=== PATIENT | female | born 1990 | race Caucasian/White ===

== ENCOUNTER → 2017-09-12 | Outpatient (REF) | payer MEDICAID ==
[~2017-09-12] MED LIST: DOXY150T6 PO; METH0.2T PO; NAP550 PO
== END ==
LOC: ZZSENDIN 17:22
PROVIDERS: ATTEND Obstetrics & Gynecology
DX: E03.9 Hypothyroidism, unspecified (principal)
CPT/HCPCS: 84443

== ENCOUNTER → 2017-11-04 | Outpatient (CLI) | payer MEDICAID | LOC: LAB 15:13 | PROVIDERS: ATTEND Student in an Organized Health Care Education/Training Program | DX: Z36.85 Encounter for antenatal screening for Streptococcus B (principal) | CPT/HCPCS: 87081 ==

== ENCOUNTER 2017-11-10 19:27 | Emergency (ER) | payer MEDICAID ==
[~2017-11-10 19:27] MED LIST changes: +GUAI100G4 PO; +LEVO50TA86 PO; +PREN-127 PO
[2017-11-10 19:30] VITALS: BP 120/97
[2017-11-10] MEDS ORDERED: AMOX-362 PO (19:49)
[2017-11-10] MEDS ORDERED: AMOXICILLIN 500 MG CAP PO ONE (19:50)
[2017-11-10] MEDS ORDERED: APAP/HYDROCODONE 325/5 TAB PO ONE (19:50)
[2017-11-10] MEDS ORDERED: ACET/HYDROC 5/325MG TH ER ONLY 2 TAB/BOTTLE PO ONE (19:50)
--- NOTE | 2017-11-10 19:50 | ER Report ---
History and Physical Time Seen By MD: 19:37 Hx. of Stated Complaint: PATIENT STARTED HAVING PAIN IN RIGHT EAR ABOUT 2HOURS AGO. PATIENT STATES SHE HAS BEEN SICK SINCE FRIDAY, WITH COUGH AND SORE THROAT. PATIENT ALSO 37WEEKS . HPI/ROS CHIEF COMPLAINT: ear pain HISTORY OF PRESENT ILLNESS: This is a 27 year old female. She is 37 weeks . Has severe right ear pain. Started 2 hours ago. Has been sick with cough and sore throat for 5 days now. No shortness of breath. No nausea or vomiting. No problems with other than decreased movement today. No leakage of fluid, bleeding, or contractions/pain. No fever or chills. Allergies: Coded Allergies: No Known Drug Allergies (Unverified , 11/10/17) Home Meds Active Scripts Amoxicillin (AMOXICILLIN) 500 Mg Capsule, 1 CAP PO Q8H, #21 CAPSULE 0 Refills Prov:CLARENCE FRAUSTO MD 11/10/17 Reported Medications Vits W-Ca,Fe,Fa(<1MG) ( VITAMINS) 1 Each Tablet, 1 EACH PO DAILY, TAB 11/08/17 Levothyroxine Sodium (LEVOTHYROXINE SODIUM) 50 Mcg Tablet, 25 MCG PO QDAY, TAB 11/08/17 Discontinued Reported Medications Guaifenesin (MUCINEX) 100 Mg Gran.pack, 100 MG PO 11/08/17 Doxycycline Monohydrate (Doxycycline) 150 Mg Tablet, 100 MG PO BID, #14 0 Refills 05/03/11 Methylergonovine Maleate (Methergine) 0.2 Mg Tablet, 0.2 MG PO EVERY 4 HOURS, # 6 0 Refills 05/03/11 Naproxen Sodium (Anaprox Ds) 550 Mg Tab, 550 MG PO BIDBS, #30 0 Refills 05/03/11 Reviewed Nurses Notes: Yes Smoking Status: Never Smoker Constitutional Vital Sign - Last 24 Hours 11/10/17 19:30 Temp 98.0 Pulse 90 Resp 16 B/P (MAP) 120/97 Pulse Ox 93 O2 Delivery Room Air Physical Exam General: Alert, no acute distress. ENT: Right ear with diffuse erythema of the TM and canal, bulging and purulent fluid behind eardrum. Normal oral mucosa and posterior oropharynx with some erythema which is mild and mild post-nasal drainage. Normal nasal mucosa. Neck: Supple, has some right anterior cervical lymphadenopathy, non-tender. Lungs: Clear to auscultation. Cardiovascular: Regular rate and rhythm. Medical Decision Making ED Course/Re-evaluation ED Course The patient will rest and increase fluid intake. Will start her on Amoxicillin 500mg three times a day for 7 days. She will use Lortab, one now and a take home pack of the 5/325 tablets. She has a follow-up appointment with Dr. Moreno tomorrow. Offered to do some monitoring, but the patient will return home and see how things are going. She knows she can return for further evaluation as needed. Decision to Disposition Date: Nov 10, 2017 Decision to Disposition Time: 19:48 Depart Departure Latest Vital Signs Vital Signs Date Time Temp Pulse Resp B/P (MAP) Pulse Ox O2 Delivery O2 Flow Rate FiO2 11/10/17 19:30 98.0 90 16 120/97 93 Room Air Impression: Primary Impression: Acute otitis media Condition: Condition Unchanged Disposition: HOME OR SELF-CARE Referrals: LIZA MORENO DO (PCP) New Scripts Amoxicillin (AMOXICILLIN) 500 Mg Capsule 1 CAP PO Q8H, #21 CAPSULE 0 Refills Prov: CLARENCE FRAUSTO MD 11/10/17 Patient Instructions: Otitis Media (ED) Additional Instructions: You have an ear infection causing the pain in your ear and likely the cause of your cough as well. We are going to start you Amoxicillin 500mg three times a day for 7 days. For ear pain, take Lortab 5/325, one every 4 hours as needed tonight to help with pain. The pain medicine Lortab does contain Tylenol, so do not take Both medicines at the same time. Based on your Tylenol use recently, it will be safe to take a dose of Lortab now. Rest and increase fluid intake. Follow-up with Dr. Moreno as planned tomorrow. If you have any bleeding, leakage of fluid or contractions, please call Dr. Moreno sooner. You can always return for further evaluation of your if you are concerned or having problems. Problem Qualifiers Primary Impression: Acute otitis media Otitis media type: suppurative Laterality: right Recurrence: not specified as recurrent Spontaneous tympanic membrane rupture: without spontaneous rupture Qualified Codes: H66.001 - Acute suppurative otitis media without spontaneous rupture of ear drum, right ear CLARENCE FRAUSTO MD Nov 10, 2017 19:50
== END 2017-11-10 20:06 | disposition home or self-care (01) ==
LOC: ER 19:57
DX: O26.893 Other specified pregnancy related conditions, third trimester (principal); H66.001 Acute suppurative otitis media without spontaneous rupture of ear drum, right ear; Z3A.37 37 weeks gestation of pregnancy
CPT/HCPCS: 99283

== ENCOUNTER 2017-12-01 07:44 | Inpatient (IN) | payer MEDICAID ==
[~2017-12-01] VITALS: Ht 170.2 cm; Wt 93.0 kg
[~2017-12-01 07:44] MED LIST changes: +AMOX-362 PO
[2017-12-01] MEDS ORDERED: OXYTOCIN 30 UNIT/D5LR 500 ML 500 ML IV PRN (08:13)
[2017-12-01] MEDS ORDERED: FAMOTIDINE(*) 20MG/50ML PREMIX 50 ML IVPB PRN (08:13)
[2017-12-01] MEDS ORDERED: BUPIVACAINE 0.25% MPF INJ EPI PRN (08:15)
[2017-12-01] MEDS ORDERED: FLUSH 10 ML SYR IVP PRN (08:15)
[2017-12-01] MEDS ORDERED: ePHEDrine 25 MG/5 ML DISP.SYR IVP PRN (08:15)
[2017-12-01] MEDS ORDERED: EPIDURAL KEYS XX PRN (08:15)
[2017-12-01] MEDS ORDERED: LIDOCAINE/PF 2% 200MG/10ML AMP 200 MG/10 ML AMPUL EPI PRN (08:15)
[2017-12-01] MEDS ORDERED: LIDOCAINE 1% LOCAL 300 MG/30ML INJ PRN (08:15)
[2017-12-01] MEDS ORDERED: fentaNYL CITR 100 MCG/2 ML AMP IVP PRN (08:15)
[2017-12-01] MEDS ORDERED: ONDANSETRON 4 MG/2 ML VIAL IVP PRN (08:15)
[2017-12-01] MEDS ORDERED: FENTANYL/ROPIVACAINE 100 ML BAG EPI PRN (08:15)
[2017-12-01] MEDS ORDERED: LIDOCAINE/SOD BICARB 8.4% SYR SC PRN (08:15)
[2017-12-01] MEDS ORDERED: METOCLOPRAMIDE 10 MG/2 ML SDV IVP PRN (08:15)
[2017-12-01] MEDS ORDERED: fentaNYL CITR 100 MCG/2 ML AMP IT PRN (08:15)
[2017-12-01] MEDS ORDERED: BUPIVACAINE 0.5% INJ 30ML VIAL EPI PRN (08:15)
[2017-12-01] MEDS ORDERED: LIDO/EPI 2% MPF 1:200,000 20ML EPI PRN (08:15)
[2017-12-01] MEDS: LR(*) 1000 ML BAG 1,000 ML IV PRN ×3 (08:43→16:21)
--- NOTE | 2017-12-01 08:44 | History & Physical ---
History of Present Illness Age of Patient: 27 : 2 Para or TPAL: 0010 EDC per LMP: Dec 02, 2017 Estimated Gestational Age: 39.6 Chief Complaint Painful contractions. History of Present Illness Pt is a 27 y/o @ 39-6/7 weeks gestation who presents to clinic with a chief complaint of painful contractions since late last night. Reports contractions every few minutes that have progressively gotten closer. Pt denies any loss of amniotic fluid. Good movement. No vaginal bleeding. History Patient's Blood Type: O Positive Rubella Status: Immune Group B Strep Screen: Negative Obstetrical History: sAB Past Medical History: Hypothyroid Allergies: Coded Allergies: No Known Drug Allergies (Unverified , 11/10/17) Social History: Denies X 3 Family History: FH: diabetes mellitus BROTHER OR SISTER Idiopathic thrombocytopenic purpura MOTHER Med Rec Home Meds Active Scripts Amoxicillin (AMOXICILLIN) 500 Mg Capsule, 1 CAP PO Q8H, #21 CAPSULE 0 Refills Prov:CLARENCE FRAUSTO MD 11/10/17 Reported Medications Vits W-Ca,Fe,Fa(<1MG) ( VITAMINS) 1 Each Tablet, 1 EACH PO DAILY, TAB 11/08/17 Levothyroxine Sodium (LEVOTHYROXINE SODIUM) 50 Mcg Tablet, 25 MCG PO QDAY, TAB 11/08/17 Review of Systems All Systems Reviewed/Normal: Yes, Except as Noted Constitutional: No Fever, No Weight Loss, No Weight Gain, No Chills, No Night Sweats, No Other Neurological: No Syncope, No Confusion, No Weakness, No Dizziness, No Slurred Speech, No Other Eyes: No Vision Change, No Loss of Vision, No Photophobia, No Other ENT: No Hearing Loss, No Sinus Congestion, No Sore Throat, No Ear Ache, No Tinnitus, No Other Cardiovascular: No Chest Pain, No Palpitations, No Orthostatic Hypotension, No Other Respiratory: No Shortness of Breath, No Cough, No Wheezing, No Other Gastrointestinal: No Nausea, No Vomiting, No Diarrhea, No Dysphagia, No Constipation, No Early Satiety, No Hematemesis, No Hematochezia, No Melena, No Abdominal Pain, No Other Genitourinary: No Dysuria, No Hematuria, No Urinary Incontinence, No Other Musculoskeletal: No Pain, No Sprain, No Strain, No Impaired Mobility, No Other Psychiatric: No Depression, No Anxiety, No Other Exam General Exam General Apperance: Alert/Awake/No Acute Distress Neuro: No Gross deficits Eyes: Normal Extraocular Movement & Vison ENT: Normal Cardiovascular: Regular Rate and Rhythm Respiratory: No Respiratory Distress, Clear to Auscultation Abdomen: Soft, Non-Tender, Non-Distended, Gravid - Non-Tender : Normal Musculoskeletal: No Weakness/Pain Extremities: No Cyanosis,Clubbing or Edema Integumentary: Skin Intact without Lesions or Rash Psychological: Alert & Oriented X3, Appropriate Mood & Affect Cervical Dialation: 4 Cervical Effacement (%): 100 Cervical Consistency: Soft Cervical Position: Anterior Station: -2 Presentation: Vertex Uterine Contractions(Q min): 2 Uterine Contraction Strength: Moderate UC Resting Tone: Soft Fetus Feeling Movement?: Yes Estimated Weight(grams): 3600 Heart Tones: 135 Heart Tone Variabilty: Moderate FHT Accelerations: 15X15 FHT Decelerations: None Medical Decision Making Pre-Admit Course Medical Record Review: Yes VTE Prophylasis: Adult Deep Vein Thrombosis/Pulmonary: No Assessment and Plan 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 Once comfortable will get catheter and undergo amniotomy. Expect . (2) 39 weeks gestation of HERACLIOEDDIEKevin WATTS Dec 01, 2017 08:44
[2017-12-01 08:51] LABS: PLATELET COUNT, AUTOMATED 199 K/uL (150-450)
[2017-12-01 08:59] VITALS: BP 118/73; Ht 170.2 cm; Wt 93.0 kg
--- NOTE | 2017-12-01 11:15 | Anesthesia OB Pre-Anes Eval ---
History of Present Illness Anesthesia Start Date: Dec 01, 2017 Anesthesia Start Time: 08:55 OB Anesthesia Diagnosis: spontaneous labor Complications: None known EDC: Dec 02, 2017 : 2 Para: 0 Vital Signs: Vital Signs Date Time Temp Pulse Resp B/P (MAP) Pulse Ox O2 Delivery O2 Flow Rate FiO2 12/01/17 08:59 97.4 74 18 118/73 (88) 98 Room Air Pain Ratin Heart Tones: WNL Result Diagram: 12/01/17 0833 Height (Inches): 67.00 Weight (Pounds): 205 BMI Calculated: 32.10 Past Medical History Medical History: no pertinent history Surgical History: no surgical history Previous Anesthesia: general Attended Childbirth Classes?: Yes Hx Anesthesia Reactions: No Hx Family Anesthesia Reaction: No Current Medications: pain medication (Fentenyl IV) Home Meds Reported Medications Vits W-Ca,Fe,Fa(<1MG) ( VITAMINS) 1 Each Tablet, 1 EACH PO DAILY, TAB 11/08/17 Levothyroxine Sodium (LEVOTHYROXINE SODIUM) 50 Mcg Tablet, 25 MCG PO QDAY, TAB 11/08/17 Discontinued Scripts Amoxicillin (AMOXICILLIN) 500 Mg Capsule, 1 CAP PO Q8H, #21 CAPSULE 0 Refills Prov:CLARENCE FRAUSTO MD 11/10/17 Allergies: Coded Allergies: No Known Drug Allergies (Unverified , 11/10/17) Anesthesia OB ROS Neurological: No migraines/headaches, No seizures, No neuropathy ENT: Denies Tooth caps, Denies Loose teeth, Denies Chipped teeth, Denies Dentures, Denies Bridges, Denies Retainers, Denies Veneers, Denies Implants, Denies Tongue ring Pulmonary: No asthma, No smoker (pks/day/yrs) Airway Class: ll Cardiovascular ROS: No edema, No arrhythmia GI ROS: clear liquids Last Solids Date: Nov 30, 2017 Last Solids Time: 20:00 ROS: No Herpes, No STD(s), No Liver Disease, No Renal Disease Endocrine ROS: No diabetes, No gestational diabetes, No thyroid disorder Musculoskeletal ROS: No low back pain, No low back injury, No scoliosis ASA Classification: 2 Assessment and Plan Anesthesia Plan: CSE Assessment Past Medical, Surgical, Family and Obstetric Histories reviewed. Please see ACOG chart. Epidural anesthesia risks, complications and benefits explained to patient's satisfaction for labor and vaginal delivery and/or section. General anesthesia risks and benefits explained to patient's satisfaction. Questions invited, none asked. LIVIA POLLOCK PROOFER PREPRESS Dec 01, 2017 11:15
--- NOTE | 2017-12-01 11:40 | Procedure Note ---
Anesthetic Placement Note Anesthesia Plan: CSE Permit for Anesthesia Signed: Yes Anesthesia Technique: Patient Sitting Anesthesia Prep: Chlorhexidine Interspace: L 3-4 Local Anesthetic: 1% Lidocaine, 25 Gauge Needle Amount Local - cc's: 2 Anesthesia Needle: 17g Touhy/Schliff Anesthesia Attempts: 2 Loss of Resistance: Air Depth of ADRIÁN (cm): 7 Epidural Needle Placement: Blood Intrathecal Needle: 27 Gauge Pencan Cerebral Spinal Fluid: Yes, Clear Catheter Insertion (cm): 9 Catheter Type: Smallwood - Spring Wound Epidural Dressing: Tegaderm, Tape, Adhesive Lyman Anesthesia Tray: Lot Number [id number]), Expiration Date (2018 x2 kits), Reference Number ([id number] x2 kits) Comment: Good ADRIÁN with air on first attempt, but no CSF with intrathecal. Moderate blood return on threading epidural catheter. Entire needle and catheter removed. New Epidural tray opened and 2nd attempt was completed with no problems. Anesthesia Medications: Intrathecal Dose: mcg Fentanyl (15), mg Marcaine MPF (1.75), Time (0932) Epidural Test Dose: 1.5 Lido/Epi (1:200,000), Dose - mL (2), Time (1000), Negative Epidural Loading Dose: 0.2% Ropivicaine, With Fentanyl 2mcg/ml, Dose - ml (1001 ) Epidural Infusion: 0.2% Ropivicaine, With Fentanyl 2mcg/ml, Start Time: (1002) Epidural Pump Setting: Bolus Dose - mL (5), Lockout - Minutes (20), Maintenance Rate - mL/hr (6), Maximum per Hour - mL (21) Complications: None Comment: Pt. became comfortable within 5-8 minutes. Moderate itching noted. LIVIA POLLOCK CRNA Dec 01, 2017 11:40
--- NOTE | 2017-12-01 11:45 | Anesthesia Progress Note ---
Progress/Maintenance Anesthesia Note Date: Dec 01, 2017 Anesthesia Note Time: 11:20 Pain Intensity: 0 Pump: On Pump Rate (ML/HR): 6 Sensory Level: T-12 Motor Level: Bending Knees-Bilateral Dilatation: 7 Position: Right, Tilt Assessment and Plan Anesthesia Plan: CSE Assessment Pt. states she feels contractions, as "slight tightening". Encouraged to rest. LIVIA POLLOCK CRNA Dec 01, 2017 11:45
--- NOTE | 2017-12-01 15:12 | Anesthesia Progress Note ---
Progress/Maintenance Anesthesia Note Date: Dec 01, 2017 Anesthesia Note Time: 15:00 Pain Intensity: 7 Pump: On Pump Rate (ML/HR): 6 Sensory Level: T-12 Motor Level: Bending Knees-Bilateral Dilatation: 10 Position: Left, Tilt Drug Bolus: 0.5% Marcaine (3 ml), Other (Fentenyl 85 mcgs) Assessment and Plan Assessment Pt. states her hips and low back are very uncomfortable. Bolus with Fentenyl. Waited 10 minutes, no improvement. Bolus per pump. Pt continued to not tolerate contractions, bolus of 3 ml 0.5% Marcaine plain. Pt. became totally comfortable within 1-2 minutes after bolus. LIVIA POLLOCK CRNA Dec 01, 2017 15:12
--- NOTE | 2017-12-01 19:12 | Anesthesia Progress Note ---
Progress/Maintenance Anesthesia Note Date: Dec 01, 2017 Anesthesia Note Time: 18:00 Pain Intensity: 5 Pump: On Pump Rate (ML/HR): 6 Sensory Level: T-12 Motor Level: Bending Knees-Bilateral Dilatation: 10 Position: Semi-Fowlers Drug Bolus: 0.5% Marcaine (4 ml) Assessment and Plan Assessment Pt. become exhausted and crying. Encouragement given as well as epidural bolus for possible vacuum/forceps assistance. LIVIA POLLOCK CRNA Dec 01, 2017 19:12
--- NOTE | 2017-12-01 19:15 | Anesthesia Progress Note ---
Progress/Maintenance Anesthesia Note Date: Dec 01, 2017 Anesthesia Note Time: 18:45 Pain Intensity: 0 Pump: Off Sensory Level: T-12 Motor Level: Other (both legs heavy) Position: Semi-Fowlers Assessment and Plan Assessment Able to push for delivery. Excellent pain tolerance of delivery and repair work. Empty syringe attached to epidural catheter. RN agrees to remove with ambulation. Patient instructed the first ambulation is to be with help of nursing staff. Instructed to preform deep knee bends at bedside before walking. Anesthesia Stop Day: Dec 01, 2017 Anesthesia Stop Time: 18:45 LIVIA POLLOCK CRNA Dec 01, 2017 19:15
[2017-12-01] MEDS ORDERED: GLYCERIN/WITCH HAZEL LEAF 1 PK TOP PRN (19:25)
[2017-12-01] MEDS ORDERED: LANOLIN OINT 7 GM TUBE TP PRN (19:25)
[2017-12-01] MEDS ORDERED: INFLUENZA VIRUS VAC 0.5 ML SYR IM ONLY ONE (19:25)
[2017-12-01] MEDS ORDERED: BENZOCAINE 20% 60 ML BTL TP PRN (19:25)
[2017-12-01] MEDS ORDERED: ACETAMINOPHEN 325 MG TAB PO PRN (19:25)
[2017-12-01] MEDS ORDERED: HYDROCORTISONE 2.5% CR 30GM TB PR PRN (19:25)
[2017-12-01] MEDS ORDERED: MAGNESIUM HYDROXIDE* 30ML UDCP PO PRN (19:25)
--- NOTE | 2017-12-01 19:37 | OB Delivery Note ---
Delivery Note Vaginal Delivery Type: Spont. Vaginal Delivery Delivery Date: Dec 01, 2017 Delivery Time: 18:35 Estimated Gestational Age(wks): 39.6 Length of Labor Stage I (hrs): 12 Length of Labor Stage II (hrs): 5.5 Labor Stage III (minutes): 5 Delivery Anesthesia: Epidural Infant Sex: Male Infant Weight (gms): 3550 (7#13oz) Apgars: 1 Minute (8), 5 Minute (8) Repair Needed: 2nd Degree Estimated Blood Loss: 500 Delivery Complications: Other (MSAF) Tso in Attendence: LIZA Morales DO Dec 01, 2017 19:37
[2017-12-01 19:51] VITALS: BP 115/66
[2017-12-01] MEDS: DOCUSATE CALCIUM 240 MG CAP PO SCH (20:15)
[2017-12-01] MEDS: IBUPROFEN 800 MG TAB PO SCH (20:15)
[2017-12-01 20:43] VITALS: BP 116/69
[2017-12-01 22:03] VITALS: BP 116/78
[2017-12-01 22:59] VITALS: BP 119/76
[2017-12-01] MEDS: APAP/HYDROCODONE 325/5 TAB PO PRN (23:20)
[2017-12-02 03:27] VITALS: BP 99/55
[2017-12-02] MEDS: APAP/HYDROCODONE 325/5 TAB PO PRN ×3 (03:46→22:47)
[2017-12-02] MEDS: IBUPROFEN 800 MG TAB PO SCH ×3 (04:55→20:27)
[2017-12-02 07:10] VITALS: BP 113/79
[2017-12-02] MEDS: DOCUSATE CALCIUM 240 MG CAP PO SCH ×2 (09:35→20:27)
--- NOTE | 2017-12-02 09:42 | OB/GYN Progress Note ---
OB Subjective Progress Notes Subjective Doing good this morning. Some episodes of bleeding overnight. Tolerating PO intake. Lochia appropriate this morning. Voiding with out any difficulty. Some difficulty with . GI: NEG Nausea, NEG Vomiting, NEG Flatus, NEG Bowel Movement : Voiding Well, Vaginal Bleeding, Moderate Pain: Mild, Tolerating PO Pain Meds Neurological: No Headache, No Other Eyes: No Visual Disturbances OB Objective Physical Exam Vital Signs Date Time Temp Pulse Resp B/P (MAP) Pulse Ox O2 Delivery O2 Flow Rate FiO2 12/02/17 07:10 98.3 69 14 113/79 (90) Room Air 12/01/17 22:03 98 Intake and Output 12/03/17 07:00 # Voids 1 General Appearance: Alert/Awake/No Acute Distress Neurological: No Gross deficits Eyes: Normal Extraocular Movement & Vison Neck: No Masses Cardiovascular: Normal Rhythm & Peripheral Pulses, Regular Rate and Rhythm Respiratory: No Respiratory Distress, Clear to Auscultation Abdomen: Fundus Firm Extremities: No Cyanosis,Clubbing or Edema Integumentary: Skin Intact without Lesions or Rash Psychological: Alert & Oriented X3, Appropriate Mood & Affect Result Diagram: 12/02/17 0640 Assessment and Plan DIRECTOR PLANS Assessment: Stable DIRECTOR PLANS Plan: Discharge Home Tomorrow Problems: (1) Active labor at term Status: Resolved (2) 39 weeks gestation of Status: Resolved (3) care following vaginal delivery Assessment & Plan: Doing good this morning. Plan to stay overnight. Discharge 12/03/17. LIZA PULLIAM DO Dec 02, 2017 09:42
[2017-12-02 11:40] VITALS: BP 98/54
--- NOTE | 2017-12-02 11:54 | Anesthesia Post Eval Note ---
Anesthesia Post Eval Note Vital Signs Date Time Temp Pulse Resp B/P (MAP) Pulse Ox O2 Delivery O2 Flow Rate FiO2 12/02/17 07:10 98.3 69 14 113/79 (90) Room Air 12/01/17 22:03 98 Pt able to participate in Eval: Yes Cardiovascular Status: Satisfactory Respiratory Status: Satisfactory Pain Managment: Satisfactory PO Nausea/Vomiting: Satisfactory Temperature Management: Satisfactory Mental Status: Satisfactory, Alert, Oriented X3 Post-Op Hydration Status: Satisfactory, Tolerating PO Well, Voiding w/o Difficulty Anesthesia Type: CSE Anesthesia Tolerance: Tolerated procedure well without apparent anesthetic complications. LP site clear, no redness or edema. Denies headache or any residual paresthesia. Vital Signs Stable, Patient comfortable and condition stable. LIVIA POLLOCK CRNA Dec 02, 2017 11:54
--- NOTE | 2017-12-02 13:16 | DELIVERY NOTE ---
DELIVERY DATE: December 01, 2017 SURGEON: Rob Moreno DO ANESTHESIA: Epidural. PREOPERATIVE DIAGNOSIS 1. 27-year-old 2, para 0 at 39 and 6/7 weeks gestation. 2. Spontaneous labor. POSTOPERATIVE DIAGNOSIS 1. 27-year-old 2, para 0 at 39 and 6/7 weeks gestation. 2. Spontaneous labor. 3. Delivered. PROCEDURE Spontaneous vaginal delivery with repair of second-degree midline laceration. FINDINGS Live-born male infant at 1835 with Apgars of 8 and 8, weighing 3550 grams, 7 pounds, 13 ounces, three-vessel cord, intact placenta over a second-degree midline laceration. ESTIMATED BLOOD LOSS 500 mL. PATHOLOGY None. COMPLICATIONS None known. CONDITION Stable x two, mother and to remain in LDRP. COUNTS Correct x two for all needles, laps, sponges and instruments. LABOR SUMMARY Patient is a 27-year-old 2, para 0 at 39 and 6/7 weeks gestation who presents to Labor and Delivery for chief complaint of painful contractions. On initial examination, he was found to be 4-5 cm. She was fozia every two to three minutes. She was admitted with a diagnosis of labor. She continued to contract spontaneously, requested epidural. Just before epidural was given, patient was noted to be 6 cm with a bulging bag. After epidural, patient was comfortable and was able to sleep. She continued to contract, and made it all the way to complete and 0 station. Once at complete, she did labor down for a time, had spontaneous rupture of membranes. After labor down process, she did feel the urge to push. After coaching instructions were given by the nursing staff, the patient was prepped for vaginal delivery. DELIVERY SUMMARY Patient was placed in the dorsal lithotomy position. She was prepped and draped in the usual sterile manner. Upon maternal pushing, the infant's head delivered in a controlled manner followed by the anterior shoulder with gentle downward motion, the posterior shoulder with gentle upward motion. The remainder of the infant's body delivered spontaneously. Mouth and nose were bulb suctioned. The cord was clamped x two and cut by the infant's father. At this point, the infant remained on maternal abdomen, where it was vigorously cleaned and dried. Cord blood gases were obtained. The placenta delivered spontaneously with gentle cord traction. Oxytocin was infused to help with uterine tone. Uterus massaged, deemed firm. Upon inspection of the perineum, vagina, cervix and labia, it was noted that there was a second-degree midline laceration. This was repaired with a 3-0 Vicryl in the usual running manner. With laceration repaired and reapproximated , it was noted to be hemostatic. The patient was cleaned. Labor bed was reassembled, and the mother and infant were allowed to continue to booker. [facility]och[facility]
[2017-12-02 16:00] VITALS: BP 119/80
[2017-12-02 19:08] VITALS: BP 117/76
[2017-12-03] MEDS: IBUPROFEN 800 MG TAB PO SCH ×2 (05:41→12:36)
[2017-12-03] MEDS ORDERED: DIPHTH/TETANUS/ACEL. PERTUSSIS IM ONLY ONE (09:00)
[2017-12-03] MEDS ORDERED: MEASLES,MUMP,RUBELLA VAC 0.5ML SUBQ ONE (09:00)
--- NOTE | 2017-12-03 10:00 | OB/GYN Progress Note ---
OB Subjective Progress Notes Subjective Doing good this morning. Having some difficulty with that is leading to a lot of frustration. Pain controlled. Lochia appropriate. Tolerating regular diet. Ambulatory. Voiding with out any difficulty. GI: NEG Nausea, NEG Vomiting, NEG Flatus, NEG Bowel Movement : Voiding Well, Vaginal Bleeding, Moderate Pain: Mild Neurological: No Headache, No Other Eyes: No Visual Disturbances OB Objective Physical Exam Vital Signs Date Time Temp Pulse Resp B/P (MAP) Pulse Ox O2 Delivery O2 Flow Rate FiO2 12/02/17 19:08 98.0 105 16 117/76 (90) 95 Room Air General Appearance: Alert/Awake/No Acute Distress Neurological: No Gross deficits Eyes: Normal Extraocular Movement & Vison ENT: Normal Neck: No Masses Cardiovascular: Normal Rhythm & Peripheral Pulses, Regular Rate and Rhythm Respiratory: No Respiratory Distress, Clear to Auscultation Abdomen: Soft, Non-Tender, Non-Distended, Fundus Firm Musculoskeletal: No Weakness/Pain Extremities: No Cyanosis,Clubbing or Edema Integumentary: Skin Intact without Lesions or Rash Psychological: Alert & Oriented X3, Appropriate Mood & Affect Result Diagram: 12/02/17 0640 Assessment and Plan 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 Discussed the possibility of being seen before the six week appointment. LIZA PULLIAM DO Dec 03, 2017 10:00
[2017-12-03] MEDS ORDERED: LOR5/325 PO (10:10)
[2017-12-03] MEDS ORDERED: IBUP800T37 PO (10:10)
--- NOTE | 2017-12-03 10:16 | OB/GYN Discharge Summary ---
Discharge Summary Reason for Hosp/Final Diag: (1) Active labor at term Status: Resolved (2) 39 weeks gestation of Status: Resolved (3) care following vaginal delivery Hospital Course & Plan: Pt presented in Labor. Progressed to complete and delivered with out any difficulty (see operative report). Remained in the hospital for 2 days. Was discharged home on second post day. Lates Vital Signs Vital Signs Date Time Temp Pulse Resp B/P (MAP) Pulse Ox O2 Delivery O2 Flow Rate FiO2 12/02/17 19:08 98.0 105 16 117/76 (90) 95 Room Air Weight (Pounds): 205 Result Diagram: 12/02/17 0640 Condition: Improved Discharge: Home Home Meds Active Scripts Hydrocodone Bit/Acetaminophen (HYDROCODON-ACETAMINOPHEN 5-325) 1 Each Tablet, 1- 2 EACH PO Q4H Y for PAIN, #30 TAB 0 Refills Prov:LIZA PULLIAM DO 12/03/17 Reported Medications Vits W-Ca,Fe,Fa(<1MG) ( VITAMINS) 1 Each Tablet, 1 EACH PO DAILY, TAB 11/08/17 Levothyroxine Sodium (LEVOTHYROXINE SODIUM) 50 Mcg Tablet, 25 MCG PO QDAY, TAB 11/08/17 Discontinued Scripts Amoxicillin (AMOXICILLIN) 500 Mg Capsule, 1 CAP PO Q8H, #21 CAPSULE 0 Refills Prov:CLARENCE FRAUSTO MD 11/10/17 Follow up with: [facility] [phone], Dr. Pulliam [phone] Follow up in: 6 wks PP or PO Discharge Diet: As Tolerates, Increase Fluid Intake Discharge Activity: As Tolerates, Pelvic Rest LIZA PULLIAM DO Dec 03, 2017 10:16
[2017-12-03 10:30] VITALS: BP 123/83
[2017-12-03] MEDS: DOCUSATE CALCIUM 240 MG CAP PO SCH (10:40)
[2017-12-03 12:38] VITALS: BP 106/74
[2017-12-03 15:18] VITALS: BP 116/7
== END 2017-12-03 17:50 | disposition home or self-care (01) | DRG 775 ==
LOC: OB 07:44
PROVIDERS: ADMIT Obstetrics & Gynecology; ATTEND Obstetrics & Gynecology
PROC: 10E0XZZ Delivery of Products of Conception, External Approach (ICD-10-PCS; principal; 2017-12-01)
PROC: 0KQM0ZZ Repair Perineum Muscle, Open Approach (ICD-10-PCS; 2017-12-01)
PROC: 10907ZC Drainage of Amniotic Fluid, Therapeutic from Products of Conception, Via Natural or Artificial Opening (ICD-10-PCS; 2017-12-01)
DX: O77.0 Labor and delivery complicated by meconium in amniotic fluid (principal); O99.284 Endocrine, nutritional and metabolic diseases complicating childbirth; E06.3 Autoimmune thyroiditis; O70.1 Second degree perineal laceration during delivery; Z3A.39 39 weeks gestation of pregnancy; Z37.0 Single live birth
CPT/HCPCS: 36415; 85025; 85027; 86850; 86900; 86901; J3010; J7120

== ENCOUNTER → 2017-12-11 | Outpatient (CLI) | payer MEDICAID ==
[2017-12-01 08:59] VITALS: BMI 32.1
[~2017-12-11] MED LIST changes: +IBUP800T37 PO; +LOR5/325 PO
== END ==
LOC: LAB 14:28
PROVIDERS: ATTEND Student in an Organized Health Care Education/Training Program
DX: E03.9 Hypothyroidism, unspecified (principal)
CPT/HCPCS: 36415; 84443